=== PATIENT | female | born 1970 | race Caucasian/White ===

== ENCOUNTER 2016-12-19 10:21 | Emergency (ER) | payer MEDICARE ==
[~2016-12-19 10:21] MED LIST: ADVIL200 MG PO; ALBUTEROL; CELEXA20 MG PO; CLONAZEPAM 1MG T1 MG PO; FLONASE ALLER15.8 ML; NEURONTIN300 MG PO; NEXIUM40 MG PO; PROAIR; SINGULAIR10 MG PO; SYNTHROID25 MCG PO; TYLENOL WITH C1 EAC1 PO; VITAMIN B-121000 MC1 PO; ZANAFLEX4 M1 PO; ZOFRAN4 MG PO; ZYRTEC10 MG PO
[2016-12-19 11:25] LABS: BILIRUBIN NEGATIVE (NEGATIVE); BLOOD NEGATIVE Ery/uL (NEGATIVE); CLARITY CLEAR (CLEAR); COLOR YELLOW (YELLOW); GLUCOSE (U) NORMAL (NORMAL); KETONE (U) NEGATIVE (NEGATIVE); LEUKOCYTES NEGATIVE Leu/uL (NEGATIVE); NITRITE NEGATIVE (NEGATIVE); PROTEIN NEGATIVE (NEGATIVE); UROBILINOGEN 0.2 mg/dL (0.2-1.0); pH 5.5 (5.0-9.0)
== END 2016-12-19 12:16 | disposition home or self-care (01) ==
LOC: FER 10:21
PROVIDERS: Nurse Practitioner
DX: M54.5 Low back pain (principal); R51 Headache; G40.909 Epilepsy, unspecified, not intractable, without status epilepticus; J45.909 Unspecified asthma, uncomplicated; Z87.442 Personal history of urinary calculi; Z88.8 Allergy status to other drugs, medicaments and biological substances; Z91.041 Radiographic dye allergy status; Z98.61 Coronary angioplasty status
CPT/HCPCS: 81003; 99284

== ENCOUNTER 2017-03-20 13:16 | Emergency (ER) | payer MEDICARE ==
[2017-03-20 14:57] LABS: BASOPHIL 0.3 % (0-2); EOSINOPHIL 3.3 % (0-5); HCT 39.3 % (37.0-47.0); HGB 13.3 g/dl (12.5-16.0); LYMPHOCYTE 24.5 % (15-48); MCH 27.6 pg (25.0-31.0); MCHC 33.8 g/dL (32.0-36.0); MCV 81.5 fL (78.0-100.0); MONOCYTE 5.6 % (0-12); MPV 9.7 fL (6.0-9.5); NEUTROPHIL 66.3 % (41-80); PLT 294 K/uL (150-400); RBC 4.82 M/uL (4.20-5.40); RDW 15.2 % (11.5-14.0)
[2017-03-20 14:59] LABS: BILIRUBIN NEGATIVE (NEGATIVE); BLOOD NEGATIVE Ery/uL (NEGATIVE); CLARITY CLEAR (CLEAR); COLOR YELLOW (YELLOW); GLUCOSE (U) NORMAL (NORMAL); KETONE (U) NEGATIVE (NEGATIVE); LEUKOCYTES NEGATIVE Leu/uL (NEGATIVE); NITRITE NEGATIVE (NEGATIVE); PROTEIN NEGATIVE (NEGATIVE); UROBILINOGEN 0.2 mg/dL (0.2-1.0)
[2017-03-20 15:01] LABS: INR 0.94 (0.9-1.2); PROTHROMBIN TIME 12.2 SECONDS (11.7-14.0); PTT 30.4 SECONDS (23.2-31.4)
[2017-03-20 15:08] LABS: BENZODIAZEPINES NEGATIVE (NEGATIVE); COCAINE NEGATIVE (NEGATIVE)
[2017-03-20 15:09] LABS: AMPHETAMINES NEGATIVE (NEGATIVE); BARBITURATES NEGATIVE (NEGATIVE); MARIJUANA (THC) NEGATIVE (NEGATIVE); METHADONE NEGATIVE (NEGATIVE); TRICYCLIC ANTIDEPRESSANT NEGATIVE (NEGATIVE)
[2017-03-20 15:10] LABS: ALBUMIN 4.4 g/dL (3.5-5.0); BILIRUBIN - TOTAL 0.3 mg/dL (0.1-1.0); CREATININE 0.8 mg/dL (0.5-1.0); GLOBULIN (CALCULATION) 3.3 g/dL (2.2-4.2); POTASSIUM 4.3 mmol/L (3.5-5.1); TOTAL PROTEIN 7.7 g/dL (6.4-8.3)
== END 2017-03-20 17:55 | disposition home or self-care (01) ==
LOC: FER 13:16
PROVIDERS: Emergency Medicine
DX: R33.9 Retention of urine, unspecified (principal); R51 Headache; R11.0 Nausea; G35 Multiple sclerosis; G62.9 Polyneuropathy, unspecified; I50.9 Heart failure, unspecified; J44.9 Chronic obstructive pulmonary disease, unspecified; E03.9 Hypothyroidism, unspecified; K21.9 Gastro-esophageal reflux disease without esophagitis; F32.9 Major depressive disorder, single episode, unspecified; Z79.51 Long term (current) use of inhaled steroids; Z79.899 Other long term (current) drug therapy
CPT/HCPCS: 36415; 70450; 72131; 80053; 80305; 81003; 82150; 83690; 85025; 85610; 85730; 93005

== ENCOUNTER 2017-03-22 03:48 | Emergency (ER) | payer MEDICARE ==
[2017-03-22 04:53] LABS: BILIRUBIN NEGATIVE (NEGATIVE); BLOOD 3+ Ery/uL (NEGATIVE); CLARITY CLEAR (CLEAR); COLOR YELLOW (YELLOW); GLUCOSE (U) NORMAL (NORMAL); KETONE (U) NEGATIVE (NEGATIVE); LEUKOCYTES 1+ Leu/uL (NEGATIVE); NITRITE NEGATIVE (NEGATIVE); PROTEIN 1+ mg/dL (NEGATIVE); SPECIFIC GRAVITY 1.015 (1.001-1.030); UROBILINOGEN 0.2 mg/dL (0.2-1.0)
[2017-03-22 05:15] LABS: BACTERIA TRACE; URINARY RBC 20-50
== END 2017-03-22 06:04 | disposition home or self-care (01) ==
LOC: FER 03:48
PROVIDERS: Emergency Medicine
DX: T83.9XXA Unspecified complication of genitourinary prosthetic device, implant and graft, initial encounter (principal); N39.0 Urinary tract infection, site not specified; J44.9 Chronic obstructive pulmonary disease, unspecified; F32.9 Major depressive disorder, single episode, unspecified; G40.909 Epilepsy, unspecified, not intractable, without status epilepticus; Z91.041 Radiographic dye allergy status
CPT/HCPCS: 81001; 87088; 99284

== ENCOUNTER 2017-07-14 17:06 | Emergency (ER) | payer MEDICARE ==
[2017-07-14 18:55] LABS: BILIRUBIN NEGATIVE (NEGATIVE); BLOOD TRACE-INTACT Ery/uL (NEGATIVE); COLOR YELLOW (YELLOW); GLUCOSE (U) NORMAL (NORMAL); KETONE (U) NEGATIVE (NEGATIVE); LEUKOCYTES NEGATIVE Leu/uL (NEGATIVE); NITRITE NEGATIVE (NEGATIVE); PROTEIN NEGATIVE (NEGATIVE); SPECIFIC GRAVITY >=1.030 (1.001-1.030); UROBILINOGEN 0.2 mg/dL (0.2-1.0); pH 5.5 (5.0-9.0)
[2017-07-14 19:01] LABS: BACTERIA TRACE; CLARITY SLIGHTLY HAZY (CLEAR); URINARY WBC RARE
[2017-07-14 19:05] LABS: AMPHETAMINES NEGATIVE (NEGATIVE); BARBITURATES NEGATIVE (NEGATIVE); BENZODIAZEPINES NEGATIVE (NEGATIVE); COCAINE NEGATIVE (NEGATIVE); MARIJUANA (THC) NEGATIVE (NEGATIVE); METHADONE NEGATIVE (NEGATIVE); TRICYCLIC ANTIDEPRESSANT NEGATIVE (NEGATIVE)
[2017-07-14 19:10] LABS: BASOPHIL 0.3 % (0-2); EOSINOPHIL 2.7 % (0-5); HCT 33.5 % (37.0-47.0); HGB 11.2 g/dl (12.5-16.0); LYMPHOCYTE 29.5 % (15-48); MCH 29.6 pg (25.0-31.0); MCHC 33.4 g/dL (32.0-36.0); MCV 88.4 fL (78.0-100.0); MONOCYTE 6.8 % (0-12); MPV 9.7 fL (6.0-9.5); NEUTROPHIL 60.7 % (41-80); PLT 232 K/uL (150-400); RBC 3.79 M/uL (4.20-5.40); RDW 13.3 % (11.5-14.0); WBC 6.9 K/uL (4.0-10.5)
[2017-07-14 19:32] LABS: CREATININE 0.7 mg/dL (0.5-1.0); POTASSIUM 3.7 mmol/L (3.5-5.1)
== END 2017-07-14 20:25 | disposition home or self-care (01) ==
LOC: FER 17:06
PROVIDERS: Nurse Practitioner Family
DX: R10.11 Right upper quadrant pain (principal); R11.2 Nausea with vomiting, unspecified; R19.7 Diarrhea, unspecified; R63.0 Anorexia; I48.91 Unspecified atrial fibrillation; J44.9 Chronic obstructive pulmonary disease, unspecified; I50.9 Heart failure, unspecified; Z90.49 Acquired absence of other specified parts of digestive tract; Z87.442 Personal history of urinary calculi; Z95.5 Presence of coronary angioplasty implant and graft; Z98.51 Tubal ligation status; Z88.8 Allergy status to other drugs, medicaments and biological substances; Z91.041 Radiographic dye allergy status; Z79.899 Other long term (current) drug therapy
CPT/HCPCS: 36415; 80048; 80305; 81001; 85025; J2405

== ENCOUNTER 2020-12-23 18:13 | Day surgery (SDCO) | payer MEDICARE, OTHER ==
[~2020-12-23 18:13] MED LIST changes: +AMITIZA24 MCG PO; +AMITIZA8 MCG PO; +ASPIRIN EC81 MG PO; +ATARAX25 MG PO; +ATENOLOL25 MG PO; +AZITHROMYCIN250 MG PO; +BACTRIM DS TAB1 EACH PO; +BENTYL10 MG PO; +BROMFED DM COU473 ML PO; +CARAFATE1 G1 PO; +CARAFATE1 GM PO; +CARDIZEM CD180 MG PO; +CLEOCIN300 MG PO; +CYMBALTA 30MG C30 MG PO; +CYMBALTA20 MG PO; +DELZICOL400 M1 PO; +DEXILANT60 MG PO; +DIAZEPAM 5MG TAB5 MG PO; +FIBER LAXATIVE625 MG PO; +FOLBIC RF TABL1 EACH PO; +HYCODAN5 ML PO; +IMODIUM2 MG PO; +LASIX40 MG PO; +LEVAQUIN500 MG PO; +MACROBID100 MG PO; +MEDROL 4MG DOSEP4 MG PO; +NAPROXEN250 MG PO; +NORCO 5-325 TA1 EACH PO; +ONDANSETRON HCL8 MG PO; +ONDANSETRON ODT4 MG SL; +PERCOCET 7.5/321 TAB PO; +PROTONIX 40MG T40 MG PO; +PYRIDIUM200 MG PO; +SYMBICORT 16010.2 GM INH; +SYMBICORT 80-10.2 GM INH; +TRAMADOL HCL50 MG PO; +TYLENOL #31 EACH PO; +VENTOLIN HFA IN18 GM INH; +VOLTAREN100 GM TOP; +XOPENEX HFA15 GM INH; +ZOCOR40 MG PO; +ZOFRAN8 MG PO; +ZPAK PO
[2020-12-23 19:06] LABS: BASOPHIL 0.4 % (0-2); EOSINOPHIL 0.5 % (0-5); HCT 41.3 % (37.0-47.0); HGB 13.8 g/dl (12.5-16.0); LYMPHOCYTE 28.9 % (15-48); MCH 29.9 pg (25.0-31.0); MCHC 33.4 g/dL (32.0-36.0); MCV 89.4 fL (78.0-100.0); MONOCYTE 6.6 % (0-12); MPV 10.1 fL (6.0-9.5); NRBC 0; PLT 264 K/uL (150-400); RBC 4.62 M/uL (4.20-5.40); RDW 11.9 % (11.5-14.0); WBC 9.3 K/uL (4.0-10.5)
[2020-12-23 19:17] LABS: ALBUMIN 3.8 g/dL (3.4-5.0); BILIRUBIN - TOTAL 0.2 mg/dL (0.2-1.0); BUN/CREAT RATIO (CALC) 28.8 RATIO; CREATININE 0.73 mg/dL (0.51-0.95); GLOBULIN (CALCULATION) 3.7 g/dL; POTASSIUM 3.6 mmol/L (3.5-5.1); TOTAL PROTEIN 7.5 g/dL (6.4-8.2)
[2020-12-23 19:19] LABS: BILIRUBIN NEGATIVE (NEGATIVE); BLOOD NEGATIVE Ery/uL (NEGATIVE); CLARITY CLEAR (CLEAR); COLOR YELLOW (YELLOW); GLUCOSE (U) NORMAL (NORMAL); LEUKOCYTES NEGATIVE Leu/uL (NEGATIVE); NITRITE NEGATIVE (NEGATIVE); PROTEIN NEGATIVE (NEGATIVE); SPECIFIC GRAVITY 1.015 (1.001-1.030); UROBILINOGEN 0.2 mg/dL (0.2-1.0)
[2020-12-23] MEDS ORDERED: ASPIRIN EC81 MG PO (23:39)
[2020-12-23] MEDS ORDERED: EFFER-K 10 MEQ10 MEQ PO (23:40)
[2020-12-23] MEDS ORDERED: AMBIEN10 MG PO (23:41)
[2020-12-23] MEDS ORDERED: ASCORBIC ACID500 MG PO (23:41)
[2020-12-23] MEDS ORDERED: FEOSOL325 MG PO (23:41)
[2020-12-24 00:50] LABS: BUN/CREAT RATIO (CALC) 28.6 RATIO; CREATININE 0.63 mg/dL (0.51-0.95); POTASSIUM 3.8 mmol/L (3.5-5.1)
[2020-12-24 06:06] LABS: BASOPHIL 0.5 % (0-2); EOSINOPHIL 0.4 % (0-5); HCT 39.8 % (37.0-47.0); HGB 13.2 g/dl (12.5-16.0); LYMPHOCYTE 27.8 % (15-48); MCH 29.7 pg (25.0-31.0); MCHC 33.2 g/dL (32.0-36.0); MCV 89.6 fL (78.0-100.0); MONOCYTE 6.4 % (0-12); MPV 9.9 fL (6.0-9.5); NEUTROPHIL 64.2 % (41-80); NRBC 0; PLT 252 K/uL (150-400); RBC 4.44 M/uL (4.20-5.40); RDW 11.9 % (11.5-14.0); WBC 8.6 K/uL (4.0-10.5)
[2020-12-24 06:26] LABS: ALBUMIN 3.7 g/dL (3.4-5.0); BILIRUBIN - TOTAL 0.3 mg/dL (0.2-1.0); BUN/CREAT RATIO (CALC) 31.1 RATIO; CREATININE 0.61 mg/dL (0.51-0.95); GLOBULIN (CALCULATION) 3.5 g/dL; MAGNESIUM 2.2 mg/dL (1.8-2.4); TOTAL PROTEIN 7.2 g/dL (6.4-8.2)
[2020-12-24] MEDS ORDERED: LOSARTAN POTASS25 MG PO (14:06)
--- NOTE | 2020-12-24 14:11 | NUR ---
LIVES ALONE; PT INDEPENDENT WITH ADL'S PLEASE ADVISE OF ANY DISCHARGE NEEDS
--- NOTE | 2020-12-24 14:38 | NUR ---
WHILE PROVIDING PATIENT DISCHARGE INSTRUCTIONS, THIS RN ASKED IF PATIENT HAD SOMEONE TO PICK HER UP TO TAKE HER HOME. PATIENT VERBALIZED THAT HER VEHICLE IS PARKED OUTSIDE THE EMERGENCY ROOM AND SHE WILL BE DRIVING HERSELF HOME. OFFERED TO TAKE PATIENT TO THE PARKING LOT VIA WHEELCHAIR AND PATIENT DECLINED, STATING "I CAN WALK".
[2020-12-25 06:11] LABS: HBSAG SCREEN Negative (Negative); HEP A AB, IGM Negative (Negative); HEP B CORE AB, IGM Negative (Negative); HEP C VIRUS AB <0.1 (0.0-0.9)
[2020-12-25 13:11] LABS: DRVVT 34.5 sec (0.0-47.0); LUPUS REFLEX INTERPRETATION Comment: (.); PTT-LA 31.3 sec (0.0-51.9)
== END 2020-12-24 14:41 | disposition home or self-care (01) ==
LOC: FER 18:13 → FMS 22:17
PROVIDERS: Nurse Practitioner; Nurse Practitioner Family; ADMIT Hospitalist
DX: R60.1 Generalized edema (principal); R10.9 Unspecified abdominal pain; M54.9 Dorsalgia, unspecified; G89.29 Other chronic pain; I25.10 Atherosclerotic heart disease of native coronary artery without angina pectoris; G35 Multiple sclerosis; I13.0 Hypertensive heart and chronic kidney disease with heart failure and stage 1 through stage 4 chronic kidney disease, or unspecified chronic kidney disease; N18.9 Chronic kidney disease, unspecified; I50.9 Heart failure, unspecified; F43.10 Post-traumatic stress disorder, unspecified; E78.5 Hyperlipidemia, unspecified; E03.9 Hypothyroidism, unspecified; I25.2 Old myocardial infarction; J44.9 Chronic obstructive pulmonary disease, unspecified; K21.9 Gastro-esophageal reflux disease without esophagitis; K22.70 Barrett's esophagus without dysplasia; R00.1 Bradycardia, unspecified; Z20.822 Contact with and (suspected) exposure to COVID-19; Z95.5 Presence of coronary angioplasty implant and graft; Z86.73 Personal history of transient ischemic attack (TIA), and cerebral infarction without residual deficits; Z82.49 Family history of ischemic heart disease and other diseases of the circulatory system; Z98.890 Other specified postprocedural states; Z90.49 Acquired absence of other specified parts of digestive tract; Z91.041 Radiographic dye allergy status; Z88.8 Allergy status to other drugs, medicaments and biological substances; Z79.82 Long term (current) use of aspirin; Z79.899 Other long term (current) drug therapy
CPT/HCPCS: 36415; 71045; 80048; 80053; 80061; 80074; 81003; 82533; 83735; 83880; 83930; 83935; 84300; 84443; 85025; 85613; 85732; 93005; G0378; J2270; J2405; J7030; U0002

== ENCOUNTER 2021-04-04 19:27 | Emergency (ER) | payer MEDICARE, OTHER ==
[~2021-04-04 19:27] MED LIST changes: +AMBIEN10 MG PO; +ASCORBIC ACID500 MG PO; +EFFER-K 10 MEQ10 MEQ PO; +FEOSOL325 MG PO; +LOSARTAN POTASS25 MG PO
[2021-04-04 21:45] LABS: BASOPHIL 0.4 % (0-2); HCT 39.6 % (37.0-47.0); LYMPHOCYTE 34.5 % (15-48); MCH 30.1 pg (25.0-31.0); MCHC 32.8 g/dL (32.0-36.0); MCV 91.7 fL (78.0-100.0); MONOCYTE 6.5 % (0-12); MPV 9.9 fL (6.0-9.5); NEUTROPHIL 53.2 % (41-80); NRBC 0; PLT 217 K/uL (150-400); RBC 4.32 M/uL (4.20-5.40); RDW 12.1 % (11.5-14.0); WBC 7.8 K/uL (4.0-10.5)
[2021-04-04 22:03] LABS: ALBUMIN 3.8 g/dL (3.4-5.0); BILIRUBIN - TOTAL 0.3 mg/dL (0.2-1.0); CREATININE 0.75 mg/dL (0.51-0.95); GLOBULIN (CALCULATION) 3.8 g/dL; POTASSIUM 3.5 mmol/L (3.5-5.1); TOTAL PROTEIN 7.6 g/dL (6.4-8.2)
== END 2021-04-04 22:59 | disposition home or self-care (01) ==
LOC: FER 19:27
PROVIDERS: Nurse Practitioner Family
DX: S93.402A Sprain of unspecified ligament of left ankle, initial encounter (principal); I25.2 Old myocardial infarction; J44.9 Chronic obstructive pulmonary disease, unspecified; I48.91 Unspecified atrial fibrillation; G35 Multiple sclerosis; Z86.711 Personal history of pulmonary embolism; Z91.041 Radiographic dye allergy status; W07.XXXA Fall from chair, initial encounter; Y92.009 Unspecified place in unspecified non-institutional (private) residence as the place of occurrence of the external cause
CPT/HCPCS: 36415; 71045; 73590; 73630; 80053; 84484; 85025; 93005

== ENCOUNTER 2021-05-11 13:40 | Emergency (ER) | payer MEDICARE, OTHER | END 2021-05-11 15:06 | disposition home or self-care (01) | LOC: FER 13:40 | DX: M23.92 Unspecified internal derangement of left knee (principal); I51.9 Heart disease, unspecified; E11.9 Type 2 diabetes mellitus without complications; Z88.8 Allergy status to other drugs, medicaments and biological substances; Z88.0 Allergy status to penicillin; Z79.82 Long term (current) use of aspirin; Z79.899 Other long term (current) drug therapy | CPT/HCPCS: 73564 ==

== ENCOUNTER 2021-08-17 18:09 | Emergency (ER) | payer MEDICARE, OTHER ==
[2021-08-17 18:47] LABS: BASOPHIL 0.5 % (0-2); EOSINOPHIL 2.8 % (0-5); HGB 13.3 g/dl (12.5-16.0); LYMPHOCYTE 33.3 % (15-48); MCH 29.8 pg (25.0-31.0); MCHC 33.3 g/dL (32.0-36.0); MCV 89.7 fL (78.0-100.0); MONOCYTE 4.6 % (0-12); MPV 9.5 fL (6.0-9.5); NEUTROPHIL 58.5 % (41-80); NRBC 0; PLT 225 K/uL (150-400); RBC 4.46 M/uL (4.20-5.40); RDW 12.3 % (11.5-14.0); WBC 6.5 K/uL (4.0-10.5)
[2021-08-17 19:03] LABS: BILIRUBIN NEGATIVE (NEGATIVE); BLOOD NEGATIVE Ery/uL (NEGATIVE); CLARITY CLEAR (CLEAR); COLOR YELLOW (YELLOW); GLUCOSE (U) NORMAL (NORMAL); LEUKOCYTES 1+ Leu/uL (NEGATIVE); NITRITE NEGATIVE (NEGATIVE); PROTEIN NEGATIVE (NEGATIVE); UROBILINOGEN 0.2 mg/dL (0.2-1.0)
[2021-08-17 19:11] LABS: BACTERIA TRACE
[2021-08-17 19:14] LABS: ALBUMIN 3.7 g/dL (3.4-5.0); BILIRUBIN - TOTAL 0.2 mg/dL (0.2-1.0); CREATININE 0.91 mg/dL (0.51-0.95); GLOBULIN (CALCULATION) 3.6 g/dL; POTASSIUM 3.7 mmol/L (3.5-5.1); TOTAL PROTEIN 7.3 g/dL (6.4-8.2)
[2021-08-17] MEDS ORDERED: MACROBID100 MG PO (20:03)
[2021-08-17] MEDS ORDERED: FLEXERIL5 MG PO (20:03)
== END 2021-08-17 20:23 | disposition home or self-care (01) ==
LOC: FER 18:09
PROVIDERS: Emergency Medicine
DX: N39.0 Urinary tract infection, site not specified (principal); R10.31 Right lower quadrant pain; I48.91 Unspecified atrial fibrillation; I25.10 Atherosclerotic heart disease of native coronary artery without angina pectoris; J44.9 Chronic obstructive pulmonary disease, unspecified; Z88.8 Allergy status to other drugs, medicaments and biological substances; Z91.041 Radiographic dye allergy status
CPT/HCPCS: 36415; 80053; 81001; 83690; 85025; J1170; J1885; J2405; J7030

== ENCOUNTER 2021-10-17 19:06 | Emergency (ER) | payer MEDICARE, OTHER ==
[~2021-10-17 19:06] MED LIST changes: +FLEXERIL5 MG PO
[2021-10-17 19:54] LABS: BASOPHIL 0.6 % (0-2); EOSINOPHIL 4.6 % (0-5); HCT 44.5 % (37.0-47.0); HGB 15.3 g/dl (12.5-16.0); LYMPHOCYTE 28.8 % (15-48); MCH 29.8 pg (25.0-31.0); MCHC 34.4 g/dL (32.0-36.0); MCV 86.6 fL (78.0-100.0); MONOCYTE 5.4 % (0-12); MPV 9.5 fL (6.0-9.5); NEUTROPHIL 60.3 % (41-80); NRBC 0; PLT 227 K/uL (150-400); RBC 5.14 M/uL (4.20-5.40); RDW 11.5 % (11.5-14.0); WBC 6.9 K/uL (4.0-10.5)
[2021-10-17 20:22] LABS: C-REACTIVE PROTEIN 0.8 mg/dL (<=0.90); CREATININE 0.7 mg/dL (0.51-0.95); POTASSIUM 3.9 mmol/L (3.5-5.1)
[2021-10-17 20:34] LABS: CORONAVIRUS 2019 SARS-COV-2 NEGATIVE (NEGATIVE); INFLUENZA A NAA NEGATIVE (NEGATIVE)
[2021-10-17] MEDS ORDERED: ONDANSETRON ODT4 MG SL (23:35)
[2021-10-17] MEDS ORDERED: ZPAK PO (23:35)
[2021-10-17] MEDS ORDERED: ATIVAN0.5 MG PO (23:35)
== END 2021-10-18 00:10 | disposition home or self-care (01) ==
LOC: FER 19:06
PROVIDERS: Emergency Medicine Emergency Medical Services
DX: R51.9 Headache, unspecified (principal); R11.0 Nausea; I25.2 Old myocardial infarction; E11.9 Type 2 diabetes mellitus without complications; Z86.73 Personal history of transient ischemic attack (TIA), and cerebral infarction without residual deficits; Z88.8 Allergy status to other drugs, medicaments and biological substances; Z88.5 Allergy status to narcotic agent; Z91.041 Radiographic dye allergy status; Z20.822 Contact with and (suspected) exposure to COVID-19
CPT/HCPCS: 36415; 70450; 71045; 80048; 84484; 85025; 86140; 93005; 96372; J1100; J1170; J1885; J2405; J3030; J3360; J3475; J7030; U0002

== ENCOUNTER 2021-12-04 21:50 | Emergency (ER) | payer MEDICARE, OTHER ==
[~2021-12-04 21:50] MED LIST changes: +ATIVAN0.5 MG PO
[2021-12-04 23:07] LABS: BASOPHIL 0.5 % (0-2); EOSINOPHIL 1.8 % (0-5); HCT 37.9 % (37.0-47.0); HGB 13.2 g/dl (12.5-16.0); LYMPHOCYTE 21.5 % (15-48); MCH 29.3 pg (25.0-31.0); MCHC 34.8 g/dL (32.0-36.0); MCV 84.2 fL (78.0-100.0); MONOCYTE 5.5 % (0-12); MPV 9.4 fL (6.0-9.5); NRBC 0; PLT 278 K/uL (150-400); RDW 11.8 % (11.5-14.0); WBC 8.2 K/uL (4.0-10.5)
[2021-12-04 23:08] LABS: BILIRUBIN NEGATIVE (NEGATIVE); BLOOD NEGATIVE Ery/uL (NEGATIVE); CLARITY CLEAR (CLEAR); COLOR YELLOW (YELLOW); GLUCOSE (U) NORMAL (NORMAL); LEUKOCYTES NEGATIVE Leu/uL (NEGATIVE); NITRITE NEGATIVE (NEGATIVE); PROTEIN NEGATIVE (NEGATIVE); UROBILINOGEN 0.2 mg/dL (0.2-1.0)
[2021-12-04 23:13] LABS: AMPHETAMINES NEGATIVE (NEGATIVE); BARBITURATES NEGATIVE (NEGATIVE); ECSTASY (MDMA) NEGATIVE (NEGATIVE); MARIJUANA (THC) NEGATIVE (NEGATIVE); METHADONE NEGATIVE (NEGATIVE); OPIATES POSITIVE (NEGATIVE); OXYCODONE NEGATIVE (NEGATIVE)
[2021-12-04 23:30] LABS: INR 0.97 (0.9-1.2); PROTHROMBIN TIME 12.3 SECONDS (11.8-13.4); PTT 29.6 SECONDS (24.4-34.7)
[2021-12-04 23:44] LABS: ALBUMIN 3.8 g/dL (3.4-5.0); ALKALINE PHOSHATASE 114 U/L (46-116); ALT 70 U/L (14-59); AST 39 U/L (15-37); BILIRUBIN - TOTAL 0.2 mg/dL (0.2-1.0); BUN 6 mg/dL (7-18); BUN/CREAT RATIO (CALC) 10.2 RATIO; CHLORIDE 100 mmol/L (98-107); CO2 (BICARBONATE) 28 mmol/L (21-32); CREATININE 0.59 mg/dL (0.51-0.95); GLOBULIN (CALCULATION) 3.9 g/dL; GLUCOSE 137 mg/dL (74-106); POTASSIUM 3.8 mmol/L (3.5-5.1); TOTAL PROTEIN 7.7 g/dL (6.4-8.2)
[2021-12-04 23:45] LABS: ACETAMINOPHEN (TYLENOL) < 2.0 ug/mL (10.0-30.0)
[2021-12-04 23:46] LABS: CORONAVIRUS 2019 SARS-COV-2 NEGATIVE (NEGATIVE); INFLUENZA A NAA NEGATIVE (NEGATIVE)
[2021-12-04 23:51] LABS: LACTIC ACID 1.5 mmol/L (0.4-1.9)
[2021-12-05] MEDS ORDERED: PREDNISONE 20MG20 MG PO (03:53)
[2021-12-05] MEDS ORDERED: XYZAL5 MG PO (03:53)
== END 2021-12-05 04:13 | disposition home or self-care (01) ==
LOC: FER 21:50
PROVIDERS: Emergency Medicine Emergency Medical Services; Nurse Practitioner Family
DX: L29.9 Pruritus, unspecified (principal); F11.20 Opioid dependence, uncomplicated; G89.29 Other chronic pain; Z20.822 Contact with and (suspected) exposure to COVID-19; Z88.5 Allergy status to narcotic agent; Z88.8 Allergy status to other drugs, medicaments and biological substances; Z91.041 Radiographic dye allergy status
CPT/HCPCS: 36415; 36600; 70450; 72125; 72128; 72131; 73080; 80053; 80305; 81003; 82140; 82803; 83605; 84145; 84484; 85025; 85610; 85730; 93005; G0480; J0515; J3360; U0002

== ENCOUNTER 2022-02-28 18:08 | Emergency (ER) | payer MEDICARE, OTHER ==
[~2022-02-28 18:08] MED LIST changes: +PREDNISONE 20MG20 MG PO; +XYZAL5 MG PO
[2022-02-28 20:31] LABS: BASOPHIL 0.7 % (0-2); EOSINOPHIL 1.7 % (0-5); HCT 43.8 % (37.0-47.0); LYMPHOCYTE 32.5 % (15-48); MCHC 34.2 g/dL (32.0-36.0); MCV 84.6 fL (78.0-100.0); MONOCYTE 5.6 % (0-12); MPV 9.3 fL (6.0-9.5); NEUTROPHIL 58.9 % (41-80); NRBC 0; PLT 294 K/uL (150-400); RBC 5.18 M/uL (4.20-5.40); RDW 11.8 % (11.5-14.0); WBC 9.1 K/uL (4.0-10.5)
[2022-02-28 20:41] LABS: BILIRUBIN NEGATIVE (NEGATIVE); BLOOD NEGATIVE Ery/uL (NEGATIVE); CLARITY CLEAR (CLEAR); COLOR YELLOW (YELLOW); GLUCOSE (U) NORMAL (NORMAL); LEUKOCYTES TRACE Leu/uL (NEGATIVE); NITRITE NEGATIVE (NEGATIVE); PROTEIN NEGATIVE (NEGATIVE); SPECIFIC GRAVITY <=1.005 (1.001-1.030); UROBILINOGEN 0.2 mg/dL (0.2-1.0)
[2022-02-28 20:50] LABS: AMORPHOUS URATES CRYSTALS MODERATE; BACTERIA 1+
[2022-02-28 20:51] LABS: BUN/CREAT RATIO (CALC) 12.3 RATIO; CREATININE 0.73 mg/dL (0.51-0.95); POTASSIUM 4.3 mmol/L (3.5-5.1)
[2022-02-28] MEDS ORDERED: ZANAFLEX4 M1 PO (22:47)
== END 2022-02-28 22:56 | disposition home or self-care (01) ==
LOC: FER 18:08
PROVIDERS: Nurse Practitioner Family
DX: G43.909 Migraine, unspecified, not intractable, without status migrainosus (principal); M25.512 Pain in left shoulder; J45.909 Unspecified asthma, uncomplicated; Z79.51 Long term (current) use of inhaled steroids; Z91.041 Radiographic dye allergy status; Z28.310 Unvaccinated for COVID-19
CPT/HCPCS: 36415; 73030; 80048; 81001; 85025; 87088; J1100; J1200; J2405; J7030

== ENCOUNTER 2022-04-15 19:03 | Emergency (ER) | payer MEDICARE, OTHER ==
[2022-04-15 20:21] LABS: BASOPHIL 0.8 % (0-2); EOSINOPHIL 3.4 % (0-5); HCT 40.2 % (37.0-47.0); HGB 13.2 g/dl (12.5-16.0); LYMPHOCYTE 25.9 % (15-48); MCH 29.1 pg (25.0-31.0); MCHC 32.8 g/dL (32.0-36.0); MCV 88.7 fL (78.0-100.0); MONOCYTE 5.8 % (0-12); MPV 9.3 fL (6.0-9.5); NEUTROPHIL 63.6 % (41-80); NRBC 0; PLT 241 K/uL (150-400); RBC 4.53 M/uL (4.20-5.40); RDW 12.6 % (11.5-14.0); WBC 6.5 K/uL (4.0-10.5)
[2022-04-15 20:23] LABS: BILIRUBIN NEGATIVE (NEGATIVE); BLOOD NEGATIVE Ery/uL (NEGATIVE); CLARITY CLEAR (CLEAR); COLOR YELLOW (YELLOW); GLUCOSE (U) NORMAL (NORMAL); LEUKOCYTES NEGATIVE Leu/uL (NEGATIVE); NITRITE NEGATIVE (NEGATIVE); PROTEIN NEGATIVE (NEGATIVE); SPECIFIC GRAVITY 1.025 (1.001-1.030); UROBILINOGEN 0.2 mg/dL (0.2-1.0)
[2022-04-15 20:30] LABS: PROTHROMBIN TIME 12.6 SECONDS (11.8-13.4); PTT 28.3 SECONDS (24.4-34.7)
[2022-04-15 20:37] LABS: ALBUMIN 3.7 g/dL (3.4-5.0); BILIRUBIN - TOTAL 0.2 mg/dL (0.2-1.0); BUN/CREAT RATIO (CALC) 15.2 RATIO; CREATININE 0.66 mg/dL (0.51-0.95); GLOBULIN (CALCULATION) 3.5 g/dL; POTASSIUM 3.4 mmol/L (3.5-5.1); TOTAL PROTEIN 7.2 g/dL (6.4-8.2)
[2022-04-15 20:38] LABS: AMPHETAMINES NEGATIVE (NEGATIVE); BARBITURATES NEGATIVE (NEGATIVE); ECSTASY (MDMA) NEGATIVE (NEGATIVE); MARIJUANA (THC) NEGATIVE (NEGATIVE); METHADONE NEGATIVE (NEGATIVE); OPIATES NEGATIVE (NEGATIVE); OXYCODONE NEGATIVE (NEGATIVE)
[2022-04-15 20:54] LABS: CORONAVIRUS 2019 SARS-COV-2 NEGATIVE (NEGATIVE); INFLUENZA A NAA NEGATIVE (NEGATIVE)
[2022-04-15] MEDS ORDERED: MOBIC7.5 MG PO (21:41)
[2022-04-15] MEDS ORDERED: NORCO 5-325 TA1 EACH PO (22:30)
== END 2022-04-15 22:45 | disposition home or self-care (01) ==
LOC: FER 19:03
PROVIDERS: Physician Assistant
DX: G43.909 Migraine, unspecified, not intractable, without status migrainosus (principal); E11.22 Type 2 diabetes mellitus with diabetic chronic kidney disease; N18.9 Chronic kidney disease, unspecified; I50.9 Heart failure, unspecified; J44.9 Chronic obstructive pulmonary disease, unspecified; Z91.041 Radiographic dye allergy status; Z88.8 Allergy status to other drugs, medicaments and biological substances; Z20.822 Contact with and (suspected) exposure to COVID-19; Z28.310 Unvaccinated for COVID-19
CPT/HCPCS: 36415; 70450; 80053; 80305; 81003; 83690; 85025; 85610; 85730; J1885; J2405; J2930; J7030; U0002